=== PATIENT | female | born 1935 | race Caucasian/White ===

== ENCOUNTER → 2016-10-30 | Outpatient (CLI) | payer OTHER ==
--- NOTE | 2016-11-02 08:38 | RSPPFT ---
DATE OF PROCEDURE: 10/30/16 COMMENTS: Spirometry shows FVC of 2.5 at 103% of predicted, FEV1 of 1.2 at 67%, FEV1/FVC ratio is decreased. Flow is decreased at FEF 25, FEF 50, FEF 75 and FEF 25-75. There is no response after bronchodilator treatment. Lung volumes show residual volume is increased. TLC is normal. Diffusion capacity is decreased. Flow volume loop indicates an obstructive pattern. IMPRESSION: 1. Moderately severe obstructive lung disease. 2. No response after bronchodilator treatment. 3. Lung volumes show hyperinflation. 4. Significant loss in diffusion capacity.
--- NOTE | 2016-11-16 09:04 | RSPPFT ---
DATE OF PROCEDURE: 10/30/16 COMMENTS: Spirometry with FVC of 2.5, FEV1 of 1.2, FEV1/FVC ratio at 47%. Slow vital capacity is 76% of predicted. TLC is 100%. Diffusion capacity is 44%. Non-significant response to acutely inhaled bronchodilator . IMPRESSION: 1. Moderately severe airways obstruction. 2. Non-significant response to acutely inhaled bronchodilator. 3. No evidence of airways restriction. 4. Moderate reduction in diffusion capacity.
== END ==
LOC: HRSP 11:58
PROVIDERS: ATTEND Family Medicine
DX: J44.9 Chronic obstructive pulmonary disease, unspecified (principal)
CPT/HCPCS: 94060; 94726; 94729